=== PATIENT | male | born 1960 | race Caucasian/White ===

== ENCOUNTER 2018-07-10 09:44 | Day surgery (SDC) | payer OTHER ==
[2018-07-10] MEDS ORDERED: Ringers Lactate 1,000 ML IV ONE (10:55)
[2018-07-10] MEDS: CEFAZOLIN 1GM (PREMIX IV) 1 GM/50 ML BAG ONE ×2 (11:32→13:15)
[2018-07-10] MEDS ORDERED: FENTANYL CITR 100 MCG/2 ML ONE (12:42)
[2018-07-10] MEDS ORDERED: PROPOFOL 200 MG/20 ML VIAL IV ONE (12:43)
[2018-07-10] MEDS ORDERED: MIDAZOLAM HCL 2 MG/2 ML INJ ONE (12:43)
[2018-07-10] MEDS ORDERED: ONDANSETRON 4 MG/2 ML VIAL ONE (12:44)
[2018-07-10] MEDS ORDERED: LIDOCAINE 2% MPF 5 ML VIAL ONE (12:44)
[2018-07-10] MEDS: BUPIVACA 0.25%/EPI 0.0005% MDV 50 ML VIAL ONE ×2 (13:23→13:26)
--- NOTE | 2018-07-10 13:37 | P.OP ---
Preoperative diagnosis: LEFT nipple infected sebaceous cyst Postoperative diagnosis: LEFT nipple infected sebaceous cyst Primary procedure: Incision and drainage of LEFT nipple infected sebaceous cyst Anesthesia: GETA + Local Estimated blood loss: <2c Specimen: sebaceous material, cultures sent Findings: infected sebaceous cyst Complications: None Transferred to: Recovery Room Condition: Good
--- NOTE | 2018-07-11 00:44 | OP ---
Date of Procedure: 07/10/2018 Surgeon: Ángel Sharp MD, Preoperative Diagnosis: Left nipple infected sebaceous cyst. Postoperative Diagnosis: Left nipple infected sebaceous cyst. Procedure Performed: Incision and drainage with debridement of left nipple infected sebaceous cyst. Anesthesia: General endotracheal plus local with 0.25% Marcaine. Estimated Blood Loss: Less than 2 cc. Specimen: Sebaceous material and culture sent for both aerobic and anaerobic speciation. Findings: Infected sebaceous cyst of the left nipple-areolar complex. Complications: None. Disposition: Transferred to recovery room in good condition. Procedure In Detail: Informed consent was obtained. The patient was brought to the operating room, prepped and draped in the usual sterile fashion. After adequate anesthesia was achieved, a curviline ar incision was made on the medial aspect of the periareolar skin down through subcutaneous tissue. This was consistent with carbuncle-type infected cyst. Upon entry into the cyst cavity, sebaceous ma terial was appreciated with purulent discharge. This was cultured at this time, and the sebaceous ma terial was all completely removed. The capsule was removed completely with curette. All nonviable s kin was trimmed off with tenotomy scissors from the medial aspect, and the area was copiously irrigat ed. All hemostasis was achieved with electrocautery. The nipple-areolar complex appeared to be well -vascularized at the end of the procedure; and as such, all necrotic material and infected material w as copiously irrigated out and cleansed multiple times. Therefore, the skin was reapproximated. The capsule of the cyst was approximately 3 to 3.5 cm in size, oval, in the retroareolar position. The skin was closed with a 2-0 nylon in a vertical mattress suture type closure, and a sterile dressing w as placed overtop. The patient tolerated the procedure well without evidence of complication and tra nsferred to the PACU in good condition. All counts were correct at the end of the case. JOSEFINA/LULL Voice ID: [id number] Report ID: [id number]
== END 2018-07-10 15:01 | disposition home or self-care (01) ==
LOC: OR 09:44
PROVIDERS: ATTEND Surgery
PROC: 0H9U0ZZ Drainage of Left Breast, Open Approach (ICD-10-PCS; principal; 2018-07-10 12:45)
DX: N60.02 Solitary cyst of left breast (principal); Z87.891 Personal history of nicotine dependence; Z81.2 Family history of tobacco abuse and dependence
CPT/HCPCS: 87070; 87077; 87186; 87205; J0690; J2250; J2405; J2704; J3010

== ENCOUNTER 2023-07-22 07:17 | Day surgery (SDC) | payer BC ==
[2023-07-22] MEDS ORDERED: Ringers Lactate 1,000 ML IV ONE (07:23)
[2023-07-22] MEDS ORDERED: propofoL 200 MG/20 ML VIAL IV ONE ×2 (09:38→10:14)
[2023-07-22] MEDS ORDERED: LIDOCAINE 1% MPF 5 ML VIAL ONE (09:38)
[2023-07-22 10:57] VITALS: BP 143/70; TEMP 97; O2SAT 99
== END 2023-07-22 10:58 | disposition home or self-care (01) ==
LOC: OR 07:17
PROVIDERS: ATTEND Surgery
PROC: 0DBP8ZX Excision of Rectum, Via Natural or Artificial Opening Endoscopic, Diagnostic (ICD-10-PCS; 2023-07-22)
PROC: 0DBH8ZX Excision of Cecum, Via Natural or Artificial Opening Endoscopic, Diagnostic (ICD-10-PCS; principal; 2023-07-22 09:00)
DX: Z12.11 Encounter for screening for malignant neoplasm of colon (principal); D12.7 Benign neoplasm of rectosigmoid junction; D12.0 Benign neoplasm of cecum
CPT/HCPCS: 88305; 45380; J2704 ×2; J2001; J7120